=== PATIENT | female | born 1955 | race Caucasian/White ===

== ENCOUNTER 2017-07-03 10:43 | Emergency (ER) | payer MEDICAID, OTHER ==
[~2017-07-03] VITALS: Ht 175.3 cm; Wt 79.4 kg
[2017-07-03] MEDS ORDERED: cefTRIAXone 1GM/50ML D5W 50 ML IV ONE (11:30)
[2017-07-03] MEDS ORDERED: CLINDAMYCIN 600MG IV 50 ML IV ONE (11:30)
[2017-07-03 12:35] LABS: Basophils # (auto) 0 uL; Basophils % (auto) 0.4 % (0.0-2.0); CONDITION Y; Eosinophils # (auto) 0.1 uL; Eosinophils % (auto) 1.3 % (0.0-7.0); Hematocrit 40.8 % (36.0-46.0); Hemoglobin 13.9 g/dL (12.2-16.2); Lymphocytes # (auto) 1.9 uL; Lymphocytes % (auto) 18.2 % (10.0-50.0); Mean Corpuscular Hemoglobin 29.5 pg (28.0-32.0); Mean Corpuscular Hgb Conc. 34.2 g/dL (32.0-36.0); Mean Corpuscular Volume 86.1 fL (80.0-100.0); Mean Platelet Volume 8.6 fL (7.4-10.4); Monocytes # (auto) 0.7 uL; Monocytes % (auto) 6.6 % (0.0-12.0); Neutrophils # (auto) 7.6 uL; Neutrophils % (auto) 73.5 % (37.0-80.0); Platelet Count (auto) 535 10^3/uL (140-450); Red Cell Distribution Width 13.3 % (11.6-16.0); White Blood Cell 10.4 10^3/uL (4.4-10.8)
[2017-07-03 13:00] LABS: Albumin 3.4 g/dL (3.4-5.0); BUN/Creatinine Ratio 11.5; Bilirubin, Total 0.1 mg/dL (0.2-1.0); Calcium 9.1 mg/dL (8.5-10.1); Potassium 4.1 mmol/L (3.5-5.1); Total Protein 8.1 g/dL (6.4-8.2)
[2017-07-03 14:16] VITALS: BP 127/71
== END 2017-07-03 14:55 | disposition home or self-care (01) ==
LOC: ER 10:43
DX: T81.4XXA Infection following a procedure, initial encounter (principal); C50.912 Malignant neoplasm of unspecified site of left female breast; Z90.12 Acquired absence of left breast and nipple; F17.210 Nicotine dependence, cigarettes, uncomplicated
CPT/HCPCS: 36415; 80053; 85025; 87040; 96365; 96366; 96368; 99285; J0696; J3490

== ENCOUNTER 2021-04-04 09:18 | Inpatient (IN) | payer MEDICARE, MEDICAID ==
[~2021-04-04] VITALS: Ht 172.7 cm; Wt 71.0 kg
[2021-04-04] MEDS ORDERED: SODIUM CHLORIDE 0.9% 1,000 ML IV ONE (10:00)
[2021-04-04] MEDS ORDERED: methylPREDNISolone SOD SUCC 125 MG/2 ML VL IV ONE (10:00)
[2021-04-04] MEDS ORDERED: ALBUTEROL SULF 2.5 MG/0.5ML(0.5%) NEB SOLN NEB ONE (10:00)
[2021-04-04] MEDS ORDERED: IPRATROPIUM BROM 0.5 MG/2.5ML INH SOL NEB ONE (10:00)
[2021-04-04] MEDS ORDERED: PROMETHAZINE HCL 25 MG/ML 1ML IV ONE (10:00)
[2021-04-04 10:22] LABS: Basophils # (auto) 0.1 10 ^3/uL (0-0.2); Basophils % (auto) 1.1 % (0.0-2.0); Eosinophils # (auto) 0.1 10 ^3/uL (0-0.8); Eosinophils % (auto) 0.5 % (0.0-7.0); Hematocrit 38.3 % (36.0-46.0); Hemoglobin 12.7 g/dL (12.2-16.2); Lymphocytes # (auto) 1.6 10 ^3/uL (0.4-5.4); Lymphocytes % (auto) 11.8 % (10.0-50.0); Mean Corpuscular Hemoglobin 28.4 pg (28.0-32.0); Mean Corpuscular Hgb Conc. 33.2 g/dL (32.0-36.0); Mean Corpuscular Volume 85.8 fL (80.0-100.0); Monocytes # (auto) 1.1 10 ^3/uL (0-1.3); Monocytes % (auto) 7.9 % (0.0-12.0); Neutrophils # (auto) 10.9 10 ^3/uL (1.6-8.6); Neutrophils % (auto) 78.7 % (37.0-80.0); Nucleated Red Blood Cells % 0.1 %; Red Blood Cells 4.46 10^6/uL (4.0-5.20); Red Cell Distribution Width 13.4 % (11.8-14.3); White Blood Cell 13.9 10^3/uL (4.4-10.8)
[2021-04-04 10:30] LABS: Urine Blood Negative /uL (Negative)
[2021-04-04 10:39] LABS: Chloride 104 mmol/L (98-107); Potassium 4.1 mmol/L (3.5-5.1); Sodium 134 mmol/L (136-145)
[2021-04-04 10:50] LABS: Alanine Aminotransferase 20 U/L (13-56); Albumin 3.4 g/dL (3.4-5.0); Alkaline Phosphatase 89 U/L (45-117); Anion Gap 10 (5-15); Aspartate Aminotransferase 10 U/L (15-37); BUN/Creatinine Ratio 9.5; Bilirubin, Total 0.5 mg/dL (0.2-1.0); Blood Urea Nitrogen 7 mg/dL (7-18); Calcium 8.9 mg/dL (8.5-10.1); Carbon Dioxide 20 mmol/L (21-32); GFR African American 101 mL/min; GFR Non-African American 83 mL/min; Glucose 235 mg/dL (74-106); Magnesium 2.3 mg/dL (1.6-2.6); Total Protein 7.8 g/dL (6.4-8.2)
[2021-04-04] MEDS ORDERED: cefTRIAXone 1GM/50ML D5W 50 ML IV ONE ×2 (12:12→12:15)
[2021-04-04] MEDS ORDERED: MORPHINE SULFATE INJECTION 2 MG/ML SYRG IV PRN (13:00)
[2021-04-04] MEDS ORDERED: NITROGLYCERIN 0.4 MG SL TAB SL PRN (13:00)
[2021-04-04] MEDS ORDERED: LACTULOSE 20Gm/30ML SOLN PO PRN ×2 (14:00)
[2021-04-04] MEDS ORDERED: DEXTROSE (50%) 50ML SYRG IV PRN (14:00)
[2021-04-04] MEDS ORDERED: PROMETHAZINE HCL 25 MG/ML 1ML IV PRN (14:00)
[2021-04-04] MEDS ORDERED: traMADol HCL 50 MG TAB PO PRN (14:00)
[2021-04-04] MEDS: SODIUM CHLOR 0.9% PF (SALINE LOCK) 10ML VIAL/SYR IV SCH ×2 (14:05→21:49)
[2021-04-04] MEDS: ALBUTEROL SULF 2.5 MG/0.5ML(0.5%) NEB SOLN NEB PRN (16:31)
[2021-04-04 17:14] VITALS: BP 111/64
[2021-04-04] MEDS ORDERED: LORA-655 PO (17:29)
[2021-04-04] MEDS ORDERED: GLIP5TAB12 PO (17:29)
[2021-04-04] MEDS: ACCU-CHEK COMFORT CURVE STRIP VI SCH ×2 (18:01→21:49)
[2021-04-04] MEDS: InsuLIN REG 1unit/0.01ml Soln (100units/ml) SC SCH ×2 (18:19→21:51)
[2021-04-04] MEDS: IPRATROPIUM BROM 0.5 MG/2.5ML INH SOL NEB SCH ×2 (18:47→22:32)
[2021-04-04] MEDS: ALBUTEROL SULF 2.5 MG/0.5ML(0.5%) NEB SOLN NEB SCH ×2 (18:47→22:32)
[2021-04-04 20:00] VITALS: BP 134/67
[2021-04-04] MEDS: FAMOTIDINE 20 MG TAB PO SCH (21:49)
[2021-04-04 22:00] VITALS: BP 134/67
[2021-04-04] MEDS: TEMAZEPAM 15 MG CAP PO PRN (22:12)
[2021-04-05] VITALS (7 sets, daily range): BP systolic 98–115; BP diastolic 51–67
[2021-04-05] MEDS: ALBUTEROL SULF 2.5 MG/0.5ML(0.5%) NEB SOLN NEB PRN (03:33)
[2021-04-05] MEDS: SODIUM CHLOR 0.9% PF (SALINE LOCK) 10ML VIAL/SYR IV SCH ×3 (05:11→21:28)
[2021-04-05 05:58] LABS: Basophils # (auto) 0.1 10 ^3/uL (0-0.2); Basophils % (auto) 0.6 % (0.0-2.0); Eosinophils # (auto) 0 10 ^3/uL (0-0.8); Eosinophils % (auto) 0.1 % (0.0-7.0); Hematocrit 30.8 % (36.0-46.0); Hemoglobin 10.4 g/dL (12.2-16.2); Lymphocytes # (auto) 1.4 10 ^3/uL (0.4-5.4); Lymphocytes % (auto) 7.8 % (10.0-50.0); Mean Corpuscular Hemoglobin 28.8 pg (28.0-32.0); Mean Corpuscular Hgb Conc. 33.9 g/dL (32.0-36.0); Mean Corpuscular Volume 85.1 fL (80.0-100.0); Monocytes # (auto) 1.3 10 ^3/uL (0-1.3); Monocytes % (auto) 7.2 % (0.0-12.0); Neutrophils # (auto) 14.6 10 ^3/uL (1.6-8.6); Neutrophils % (auto) 84.3 % (37.0-80.0); Red Blood Cells 3.62 10^6/uL (4.0-5.20); White Blood Cell 17.4 10^3/uL (4.4-10.8)
[2021-04-05 06:12] LABS: Chloride 109 mmol/L (98-107); Potassium 4.2 mmol/L (3.5-5.1); Sodium 139 mmol/L (136-145)
[2021-04-05 06:24] LABS: Alanine Aminotransferase 14 U/L (13-56); Albumin 2.9 g/dL (3.4-5.0); Alkaline Phosphatase 69 U/L (45-117); Anion Gap 6 (5-15); Aspartate Aminotransferase 8 U/L (15-37); BUN/Creatinine Ratio 22.4; Bilirubin, Total 0.3 mg/dL (0.2-1.0); Blood Urea Nitrogen 11 mg/dL (7-18); Calcium 8.6 mg/dL (8.5-10.1); Carbon Dioxide 24 mmol/L (21-32); GFR African American 162 mL/min; GFR Non-African American 134 mL/min; Glucose 174 mg/dL (74-106); Total Protein 6.6 g/dL (6.4-8.2)
[2021-04-05] MEDS: ACCU-CHEK COMFORT CURVE STRIP VI SCH ×4 (06:46→21:29)
[2021-04-05] MEDS: InsuLIN REG 1unit/0.01ml Soln (100units/ml) SC SCH ×4 (06:46→21:29)
[2021-04-05] MEDS: ALBUTEROL SULF 2.5 MG/0.5ML(0.5%) NEB SOLN NEB SCH ×3 (07:02→18:28)
[2021-04-05] MEDS: IPRATROPIUM BROM 0.5 MG/2.5ML INH SOL NEB SCH ×3 (07:02→18:27)
[2021-04-05] MEDS: cefTRIAXone 1GM/50ML D5W 50 ML IV SCH (08:29)
[2021-04-05] MEDS: POTASSIUM CHL 20 Meq TABLET PO SCH (08:31)
[2021-04-05] MEDS: ENOXAPARIN SOD 40 MG/0.4 ML SYRINGE SC SCH (08:31)
[2021-04-05] MEDS: FAMOTIDINE 20 MG TAB PO SCH ×2 (08:31→21:29)
[2021-04-05] MEDS ORDERED: FUROSEMIDE 40 MG/4 ML VIAL IV SCH (10:00)
[2021-04-05] MEDS: AZITHROMYCIN 500MG/ 250ML 250 ML IV SCH (11:49)
[2021-04-05] MEDS: LORazepam 0.5 MG TAB PO PRN (11:50)
[2021-04-05] MEDS: TEMAZEPAM 15 MG CAP PO PRN (21:46)
[2021-04-05 22:32] LABS: INR 0.97 (0.9-1.15)
[2021-04-06] MEDS: ALBUTEROL SULF 2.5 MG/0.5ML(0.5%) NEB SOLN NEB SCH ×4 (00:08→19:01)
[2021-04-06] MEDS: IPRATROPIUM BROM 0.5 MG/2.5ML INH SOL NEB SCH ×4 (00:08→19:01)
[2021-04-06 05:16] VITALS: BP 115/57
[2021-04-06 06:08] LABS: Basophils # (auto) 0.1 10 ^3/uL (0-0.2); Basophils % (auto) 0.7 % (0.0-2.0); Eosinophils # (auto) 0.3 10 ^3/uL (0-0.8); Eosinophils % (auto) 2.1 % (0.0-7.0); Hematocrit 30.3 % (36.0-46.0); Hemoglobin 10.6 g/dL (12.2-16.2); Lymphocytes # (auto) 2.4 10 ^3/uL (0.4-5.4); Lymphocytes % (auto) 17.1 % (10.0-50.0); Mean Corpuscular Hemoglobin 29.7 pg (28.0-32.0); Mean Corpuscular Volume 84.9 fL (80.0-100.0); Monocytes # (auto) 1.2 10 ^3/uL (0-1.3); Monocytes % (auto) 8.3 % (0.0-12.0); Neutrophils # (auto) 10.1 10 ^3/uL (1.6-8.6); Neutrophils % (auto) 71.8 % (37.0-80.0); Red Blood Cells 3.56 10^6/uL (4.0-5.20); Red Cell Distribution Width 13.2 % (11.8-14.3); White Blood Cell 14.1 10^3/uL (4.4-10.8)
[2021-04-06 06:17] LABS: Albumin 2.7 g/dL (3.4-5.0); Calcium 8.4 mg/dL (8.5-10.1); Potassium 4.5 mmol/L (3.5-5.1)
[2021-04-06 06:22] LABS: BUN/Creatinine Ratio 19.6; Bilirubin, Total 0.4 mg/dL (0.2-1.0); Total Protein 6.4 g/dL (6.4-8.2)
[2021-04-06] MEDS: SODIUM CHLOR 0.9% PF (SALINE LOCK) 10ML VIAL/SYR IV SCH ×3 (06:33→21:42)
[2021-04-06] MEDS: InsuLIN REG 1unit/0.01ml Soln (100units/ml) SC SCH ×4 (06:34→21:44)
[2021-04-06] MEDS: ACCU-CHEK COMFORT CURVE STRIP VI SCH ×4 (06:34→21:42)
[2021-04-06 08:00] VITALS: BP 106/67
[2021-04-06 09:00] VITALS: BP 106/67
[2021-04-06] MEDS: cefTRIAXone 1GM/50ML D5W 50 ML IV SCH (09:58)
[2021-04-06] MEDS: AZITHROMYCIN 500MG/ 250ML 250 ML IV SCH (09:58)
[2021-04-06] MEDS: FAMOTIDINE 20 MG TAB PO SCH ×2 (09:59→21:42)
[2021-04-06] MEDS: ENOXAPARIN SOD 40 MG/0.4 ML SYRINGE SC SCH (09:59)
[2021-04-06] MEDS: POTASSIUM CHL 20 Meq TABLET PO SCH (09:59)
[2021-04-06 12:32] VITALS: BP 115/63
[2021-04-06] MEDS ORDERED: ALBUMIN 25% 100 ML IV ONE (13:15)
[2021-04-06] MEDS: LORazepam 0.5 MG TAB PO PRN ×2 (13:29→21:56)
[2021-04-06 17:00] VITALS: BP 119/68
[2021-04-06] MEDS: glipiZIDE 5 MG TAB PO SCH (18:00)
[2021-04-06] MEDS: ACETAMINOPHEN 500 MG TAB PO PRN (21:43)
[2021-04-06 22:00] VITALS: BP 99/61
[2021-04-07] VITALS (7 sets, daily range): BP systolic 99–102; BP diastolic 50–61
[2021-04-07] MEDS: ALBUTEROL SULF 2.5 MG/0.5ML(0.5%) NEB SOLN NEB SCH ×4 (00:17→18:58)
[2021-04-07] MEDS: IPRATROPIUM BROM 0.5 MG/2.5ML INH SOL NEB SCH ×4 (00:17→18:58)
[2021-04-07] MEDS: ACCU-CHEK COMFORT CURVE STRIP VI SCH ×4 (06:21→21:41)
[2021-04-07] MEDS: SODIUM CHLOR 0.9% PF (SALINE LOCK) 10ML VIAL/SYR IV SCH ×3 (06:21→21:41)
[2021-04-07] MEDS: InsuLIN REG 1unit/0.01ml Soln (100units/ml) SC SCH ×4 (06:23→21:49)
[2021-04-07] MEDS: glipiZIDE 5 MG TAB PO SCH ×2 (06:38→18:00)
[2021-04-07] MEDS: AZITHROMYCIN 500MG/ 250ML 250 ML IV SCH (10:07)
[2021-04-07] MEDS: ENOXAPARIN SOD 40 MG/0.4 ML SYRINGE SC SCH (10:07)
[2021-04-07] MEDS: cefTRIAXone 1GM/50ML D5W 50 ML IV SCH (10:07)
[2021-04-07] MEDS: ACETAMINOPHEN 500 MG TAB PO PRN ×2 (10:08→17:48)
[2021-04-07] MEDS: FAMOTIDINE 20 MG TAB PO SCH ×2 (10:08→21:41)
[2021-04-07] MEDS: POTASSIUM CHL 20 Meq TABLET PO SCH (10:08)
[2021-04-07] MEDS: TEMAZEPAM 15 MG CAP PO PRN (21:51)
[2021-04-08] MEDS: IPRATROPIUM BROM 0.5 MG/2.5ML INH SOL NEB SCH ×4 (00:50→20:52)
[2021-04-08] MEDS: ALBUTEROL SULF 2.5 MG/0.5ML(0.5%) NEB SOLN NEB SCH ×4 (00:50→20:52)
[2021-04-08] MEDS: MORPHINE SULFATE INJECTION 2 MG/ML SYRG IV PRN ×2 (01:34→01:37)
[2021-04-08] MEDS: HYDROcodone-ACET 5/325MG TAB PO PRN ×3 (01:38→21:07)
[2021-04-08 05:00] VITALS: BP 91/46
[2021-04-08] MEDS: SODIUM CHLOR 0.9% PF (SALINE LOCK) 10ML VIAL/SYR IV SCH ×3 (05:10→21:07)
[2021-04-08 06:03] LABS: Basophils # (auto) 0.1 10 ^3/uL (0-0.2); Basophils % (auto) 0.8 % (0.0-2.0); Eosinophils # (auto) 0.3 10 ^3/uL (0-0.8); Eosinophils % (auto) 2.8 % (0.0-7.0); Hematocrit 29.9 % (36.0-46.0); Hemoglobin 10.1 g/dL (12.2-16.2); Lymphocytes # (auto) 1.6 10 ^3/uL (0.4-5.4); Mean Corpuscular Hemoglobin 28.7 pg (28.0-32.0); Mean Corpuscular Hgb Conc. 33.8 g/dL (32.0-36.0); Mean Corpuscular Volume 85.1 fL (80.0-100.0); Monocytes % (auto) 8.7 % (0.0-12.0); Neutrophils % (auto) 74.7 % (37.0-80.0); Red Blood Cells 3.51 10^6/uL (4.0-5.20)
[2021-04-08] MEDS: glipiZIDE 5 MG TAB PO SCH ×2 (06:03→18:00)
[2021-04-08] MEDS: ACCU-CHEK COMFORT CURVE STRIP VI SCH ×4 (06:03→21:07)
[2021-04-08] MEDS: InsuLIN REG 1unit/0.01ml Soln (100units/ml) SC SCH ×4 (06:14→21:25)
[2021-04-08 06:33] LABS: Potassium 3.9 mmol/L (3.5-5.1)
[2021-04-08 06:39] LABS: BUN/Creatinine Ratio 15.6; Calcium 8.7 mg/dL (8.5-10.1)
[2021-04-08 09:00] VITALS: BP 102/65
[2021-04-08] MEDS: LORazepam 0.5 MG TAB PO PRN ×2 (09:36→19:20)
[2021-04-08] MEDS: FAMOTIDINE 20 MG TAB PO SCH ×2 (09:36→21:07)
[2021-04-08] MEDS: ACETAMINOPHEN 500 MG TAB PO PRN (09:36)
[2021-04-08] MEDS: cefTRIAXone 1GM/50ML D5W 50 ML IV SCH (09:40)
[2021-04-08] MEDS: AZITHROMYCIN 500MG/ 250ML 250 ML IV SCH (09:41)
[2021-04-08 13:00] VITALS: BP 115/79
[2021-04-08] MEDS ORDERED: ALBUMIN 25% 100 ML IV ONE (13:45)
[2021-04-08] MEDS ORDERED: FUROSEMIDE 20 MG/2 ML VIAL IV ONE (16:30)
[2021-04-08 17:00] VITALS: BP 113/62
[2021-04-08 22:00] VITALS: BP 97/52
[2021-04-09 05:00] VITALS: BP 98/63
[2021-04-09 05:17] LABS: Basophils # (auto) 0.1 10 ^3/uL (0-0.2); Basophils % (auto) 0.6 % (0.0-2.0); Eosinophils # (auto) 0.4 10 ^3/uL (0-0.8); Hematocrit 27.1 % (36.0-46.0); Hemoglobin 9.4 g/dL (12.2-16.2); Lymphocytes % (auto) 8.6 % (10.0-50.0); Mean Corpuscular Hemoglobin 29.2 pg (28.0-32.0); Mean Corpuscular Hgb Conc. 34.8 g/dL (32.0-36.0); Mean Corpuscular Volume 83.9 fL (80.0-100.0); Monocytes # (auto) 1.1 10 ^3/uL (0-1.3); Monocytes % (auto) 9.4 % (0.0-12.0); Neutrophils # (auto) 9.3 10 ^3/uL (1.6-8.6); Neutrophils % (auto) 78.4 % (37.0-80.0); Red Blood Cells 3.23 10^6/uL (4.0-5.20); Red Cell Distribution Width 12.8 % (11.8-14.3); White Blood Cell 11.9 10^3/uL (4.4-10.8)
[2021-04-09] MEDS: SODIUM CHLOR 0.9% PF (SALINE LOCK) 10ML VIAL/SYR IV SCH ×2 (05:50→13:48)
[2021-04-09] MEDS: InsuLIN REG 1unit/0.01ml Soln (100units/ml) SC SCH ×3 (05:53→17:55)
[2021-04-09] MEDS: glipiZIDE 5 MG TAB PO SCH ×2 (06:45→17:56)
[2021-04-09] MEDS: ACCU-CHEK COMFORT CURVE STRIP VI SCH ×3 (06:46→17:54)
[2021-04-09] MEDS: ALBUTEROL SULF 2.5 MG/0.5ML(0.5%) NEB SOLN NEB SCH ×4 (06:58→18:16)
[2021-04-09] MEDS: IPRATROPIUM BROM 0.5 MG/2.5ML INH SOL NEB SCH ×4 (06:58→18:16)
[2021-04-09 09:00] VITALS: BP 115/65
[2021-04-09] MEDS: cefTRIAXone 1GM/50ML D5W 50 ML IV SCH (09:54)
[2021-04-09] MEDS: LORazepam 0.5 MG TAB PO PRN (09:54)
[2021-04-09] MEDS: FAMOTIDINE 20 MG TAB PO SCH (09:54)
[2021-04-09] MEDS: AZITHROMYCIN 500MG/ 250ML 250 ML IV SCH (10:31)
[2021-04-09 13:00] VITALS: BP 109/52
[2021-04-09] MEDS ORDERED: LEVO750T64 PO (15:57)
[2021-04-09 17:00] VITALS: BP 117/51
== END 2021-04-09 21:05 | disposition home health service (06) | DRG 180 ==
LOC: ER 09:18 → TELE 12:55 → TELE-WESTW 18:09
PROVIDERS: ADMIT Internal Medicine; ATTEND Internal Medicine
PROC: 0W993ZZ Drainage of Right Pleural Cavity, Percutaneous Approach (ICD-10-PCS; 2021-04-04)
PROC: 0W993ZZ Drainage of Right Pleural Cavity, Percutaneous Approach (ICD-10-PCS; principal; 2021-04-06)
PROC: 0W9930Z Drainage of Right Pleural Cavity with Drainage Device, Percutaneous Approach (ICD-10-PCS; 2021-04-08)
DX: C78.2 Secondary malignant neoplasm of pleura (principal); J96.01 Acute respiratory failure with hypoxia; J18.9 Pneumonia, unspecified organism; J44.1 Chronic obstructive pulmonary disease with (acute) exacerbation; N39.0 Urinary tract infection, site not specified; J98.11 Atelectasis; J91.0 Malignant pleural effusion; E11.65 Type 2 diabetes mellitus with hyperglycemia; Z20.822 Contact with and (suspected) exposure to COVID-19; F17.210 Nicotine dependence, cigarettes, uncomplicated; F41.9 Anxiety disorder, unspecified; I11.9 Hypertensive heart disease without heart failure; I70.0 Atherosclerosis of aorta; Z80.0 Family history of malignant neoplasm of digestive organs; Z80.3 Family history of malignant neoplasm of breast; Z82.49 Family history of ischemic heart disease and other diseases of the circulatory system; Z85.3 Personal history of malignant neoplasm of breast; Z90.11 Acquired absence of right breast and nipple; Z90.12 Acquired absence of left breast and nipple; Z92.21 Personal history of antineoplastic chemotherapy
CPT/HCPCS: 32555; 36415; 36600; 71045; 71250; 76604; 76942; 80048; 80053; 81003; 82550; 82805; 82962; 83036; 83615; 83735; 83880; 83986; 84443; 84484; 85025; 85610; 85730; 87070; 87205; 87426; 89051; 93005; 93306; 94640; 94644; 96361; 96375; G0378; J0696; J1815; P9047

== ENCOUNTER 2021-04-23 09:55 | Inpatient (IN) | payer MEDICARE, MEDICAID ==
[2021-04-23] VITALS (7 sets, daily range): BP systolic 105–127; BP diastolic 42–65
[~2021-04-23] VITALS: Ht 167.6 cm; Wt 74.0 kg
[~2021-04-23 09:55] MED LIST: GLIP5TAB12 PO; LEVO750T64 PO
[2021-04-23 10:43] LABS: Eosinophils # (auto) 0.1 10 ^3/uL (0-0.8); Eosinophils % (auto) 0.8 % (0.0-7.0); Hematocrit 19.9 % (36.0-46.0); Lymphocytes # (auto) 0.9 10 ^3/uL (0.4-5.4); White Blood Cell 12.1 10^3/uL (4.4-10.8)
[2021-04-23 10:45] LABS: Basophils # (auto) 0 10 ^3/uL (0-0.2); Basophils % (auto) 0.3 % (0.0-2.0); Lymphocytes % (auto) 7.4 % (10.0-50.0); Mean Corpuscular Hemoglobin 26.8 pg (28.0-32.0); Mean Corpuscular Hgb Conc. 32.5 g/dL (32.0-36.0); Mean Corpuscular Volume 82.4 fL (80.0-100.0); Monocytes # (auto) 0.7 10 ^3/uL (0-1.3); Monocytes % (auto) 5.5 % (0.0-12.0); Neutrophils # (auto) 10.4 10 ^3/uL (1.6-8.6); Red Blood Cells 2.41 10^6/uL (4.0-5.20); Red Cell Distribution Width 14.5 % (11.8-14.3)
[2021-04-23 10:48] LABS: Hemoglobin 6.5 g/dL (12.2-16.2)
[2021-04-23 10:53] LABS: Alanine Aminotransferase 20 U/L (13-56); Albumin 2.8 g/dL (3.4-5.0); Anion Gap 6 (5-15); Blood Urea Nitrogen 6 mg/dL (7-18); Calcium 8.4 mg/dL (8.5-10.1); Carbon Dioxide 26 mmol/L (21-32); Chloride 99 mmol/L (98-107); Glucose 221 mg/dL (74-106); Sodium 131 mmol/L (136-145)
[2021-04-23 10:58] LABS: Alkaline Phosphatase 97 U/L (45-117); Aspartate Aminotransferase 20 U/L (15-37); BUN/Creatinine Ratio 10.9; Bilirubin, Total 0.4 mg/dL (0.2-1.0); GFR African American 142 mL/min; GFR Non-African American 117 mL/min
[2021-04-23] MEDS ORDERED: cefTRIAXone 1GM/50ML D5W 50 ML IV ONE (11:00)
[2021-04-23 11:30] LABS: Urine Bacteria FEW /hpf (None Seen); Urine Blood Negative /uL (Negative); Urine Specific Gravity 1.013 (1.001-1.035); Urine WBC 3 /hpf (0 - 5)
[2021-04-23] MEDS ORDERED: PROMETHAZINE HCL 25 MG/ML 1ML IV PRN (12:00)
[2021-04-23] MEDS ORDERED: DEXTROSE (50%) 50ML SYRG IV PRN (12:00)
[2021-04-23] MEDS ORDERED: MORPHINE SULF INJ 2 MG/ML SYRINGE 1ML IV PRN ×2 (12:00)
[2021-04-23] MEDS ORDERED: NITROGLYCERIN 0.4 MG SL TAB SL PRN (12:00)
[2021-04-23] MEDS ORDERED: LACTULOSE 20Gm/30ML SOLN PO PRN (12:00)
[2021-04-23] MEDS ORDERED: ACETAMINOPHEN 500 MG TAB PO PRN (12:00)
[2021-04-23] MEDS: ALBUTEROL SULF 2.5 MG/0.5ML(0.5%) NEB SOLN NEB SCH ×2 (12:28→18:39)
[2021-04-23] MEDS: IPRATROPIUM BROM 0.5 MG/2.5ML INH SOL NEB SCH ×2 (12:29→18:39)
[2021-04-23 12:46] LABS: Hematocrit 19.4 % (36.0-46.0)
[2021-04-23 13:00] LABS: INR 1.08 (0.9-1.15)
[2021-04-23 13:01] LABS: Hemoglobin 6.4 g/dL (12.2-16.2)
[2021-04-23] MEDS ORDERED: ONDANSETRON HCL 4 MG/2 ML VIAL ONE (14:19)
[2021-04-23] MEDS ORDERED: ONDANSETRON HCL 4 MG/2 ML VIAL IV PRN (14:30)
[2021-04-23] MEDS ORDERED: ALBU108A5 PO (16:23)
[2021-04-23] MEDS ORDERED: ACET300T57 PO (16:23)
[2021-04-23] MEDS ORDERED: LORA0.5T20 PO (16:23)
[2021-04-23] MEDS: InsuLIN REG 1unit/0.01ml Soln (100units/ml) SC SCH ×2 (17:00→21:55)
[2021-04-23] MEDS: ACCU-CHEK COMFORT CURVE STRIP VI SCH ×2 (17:07→21:51)
[2021-04-23] MEDS ORDERED: LORazepam 2MG/ML-1ML VIAL IV ONE (18:15)
[2021-04-23] MEDS: methylPREDNISolone SOD SUCC 40 MG/ML VL IV SCH (21:51)
[2021-04-23] MEDS: TEMAZEPAM 15 MG CAP PO PRN (21:55)
[2021-04-23 22:23] LABS: Hematocrit 24.4 % (36.0-46.0); Hemoglobin 8.2 g/dL (12.2-16.2)
[2021-04-24 00:43] LABS: Hematocrit 23.5 % (36.0-46.0)
[2021-04-24 05:00] VITALS: BP 126/69
[2021-04-24 05:26] LABS: Eosinophils # (auto) 0 10 ^3/uL (0-0.8); Lymphocytes # (auto) 0.5 10 ^3/uL (0.4-5.4); Lymphocytes % (auto) 4.6 % (10.0-50.0); Monocytes # (auto) 0.2 10 ^3/uL (0-1.3); White Blood Cell 10.9 10^3/uL (4.4-10.8)
[2021-04-24 05:30] LABS: Basophils # (auto) 0 10 ^3/uL (0-0.2); Basophils % (auto) 0.4 % (0.0-2.0); Mean Corpuscular Hemoglobin 28.7 pg (28.0-32.0); Mean Corpuscular Hgb Conc. 34.8 g/dL (32.0-36.0); Mean Corpuscular Volume 82.3 fL (80.0-100.0); Monocytes % (auto) 1.6 % (0.0-12.0); Neutrophils # (auto) 10.2 10 ^3/uL (1.6-8.6); Neutrophils % (auto) 93.4 % (37.0-80.0); Nucleated Red Blood Cells % 0.1 %; Red Cell Distribution Width 14.9 % (11.8-14.3)
[2021-04-24 05:54] LABS: Potassium 4.4 mmol/L (3.5-5.1)
[2021-04-24 06:02] LABS: Albumin 2.5 g/dL (3.4-5.0); BUN/Creatinine Ratio 14.9; Bilirubin, Total 0.7 mg/dL (0.2-1.0); Calcium 8.4 mg/dL (8.5-10.1); Total Protein 6.4 g/dL (6.4-8.2)
[2021-04-24] MEDS: methylPREDNISolone SOD SUCC 40 MG/ML VL IV SCH ×3 (06:04→23:12)
[2021-04-24] MEDS: ACCU-CHEK COMFORT CURVE STRIP VI SCH ×4 (06:04→23:18)
[2021-04-24] MEDS: InsuLIN REG 1unit/0.01ml Soln (100units/ml) SC SCH ×4 (06:14→23:15)
[2021-04-24] MEDS: ALBUTEROL SULF 2.5 MG/0.5ML(0.5%) NEB SOLN NEB SCH ×5 (07:55→23:31)
[2021-04-24] MEDS: IPRATROPIUM BROM 0.5 MG/2.5ML INH SOL NEB SCH ×5 (07:55→23:31)
[2021-04-24 09:00] VITALS: BP 134/76
[2021-04-24] MEDS: levoFLOXacin 500MG 100 ML IV SCH (10:10)
[2021-04-24] MEDS: PANTOPRAZOLE 40 MG TAB PO SCH (10:10)
[2021-04-24 13:00] VITALS: BP 128/65
[2021-04-24] MEDS: LORazepam 2MG/ML-1ML VIAL IV PRN ×2 (13:19→18:53)
[2021-04-24] MEDS ORDERED: DEXTROSE (50%) 50ML SYRG IV PRN (14:45)
[2021-04-24 17:00] VITALS: BP 117/63
[2021-04-24] MEDS: TEMAZEPAM 15 MG CAP PO PRN (23:13)
[2021-04-24 23:41] VITALS: BP 117/59
[2021-04-25] MEDS: LORazepam 2MG/ML-1ML VIAL IV PRN ×4 (00:48→19:18)
[2021-04-25 05:06] VITALS: BP 122/69
[2021-04-25 06:00] LABS: Eosinophils # (auto) 0 10 ^3/uL (0-0.8); Hemoglobin 7.7 g/dL (12.2-16.2); Lymphocytes # (auto) 0.3 10 ^3/uL (0.4-5.4); Monocytes # (auto) 0.4 10 ^3/uL (0-1.3); Neutrophils # (auto) 15.6 10 ^3/uL (1.6-8.6); Neutrophils % (auto) 95.3 % (37.0-80.0); Red Cell Distribution Width 15.4 % (11.8-14.3); White Blood Cell 16.4 10^3/uL (4.4-10.8)
[2021-04-25] MEDS: ACCU-CHEK COMFORT CURVE STRIP VI SCH ×3 (06:00→18:24)
[2021-04-25 06:02] LABS: Basophils # (auto) 0.1 10 ^3/uL (0-0.2); Basophils % (auto) 0.4 % (0.0-2.0); Hematocrit 22.6 % (36.0-46.0); Lymphocytes % (auto) 2.1 % (10.0-50.0); Mean Corpuscular Hemoglobin 28.3 pg (28.0-32.0); Mean Corpuscular Hgb Conc. 34.2 g/dL (32.0-36.0); Mean Corpuscular Volume 82.7 fL (80.0-100.0); Monocytes % (auto) 2.2 % (0.0-12.0); Red Blood Cells 2.73 10^6/uL (4.0-5.20)
[2021-04-25] MEDS: IPRATROPIUM BROM 0.5 MG/2.5ML INH SOL NEB SCH ×4 (06:05→23:58)
[2021-04-25] MEDS: ALBUTEROL SULF 2.5 MG/0.5ML(0.5%) NEB SOLN NEB SCH ×4 (06:05→23:58)
[2021-04-25] MEDS: methylPREDNISolone SOD SUCC 40 MG/ML VL IV SCH ×3 (06:28→21:59)
[2021-04-25] MEDS: InsuLIN REG 1unit/0.01ml Soln (100units/ml) SC SCH ×3 (06:32→18:25)
[2021-04-25 08:50] VITALS: BP 134/67
[2021-04-25] MEDS: PANTOPRAZOLE 40 MG TAB PO SCH (09:21)
[2021-04-25] MEDS: levoFLOXacin 500MG 100 ML IV SCH (09:21)
[2021-04-25] MEDS: HYDROcodone-ACET 5/325MG TAB PO PRN (09:22)
[2021-04-25 13:00] VITALS: BP 121/62
[2021-04-25 17:00] VITALS: BP 125/66
[2021-04-25] MEDS: Glucerna Carbsteady SHAKE Vanilla 8oz PO SCH (18:23)
[2021-04-25 18:51] LABS: Hematocrit 25.1 % (36.0-46.0); Hemoglobin 8.1 g/dL (12.2-16.2)
[2021-04-25] MEDS: TEMAZEPAM 15 MG CAP PO PRN (21:59)
[2021-04-25 22:00] VITALS: BP 123/60
[2021-04-26] VITALS (7 sets, daily range): BP systolic 103–140; BP diastolic 60–80
[2021-04-26] MEDS: InsuLIN REG 1unit/0.01ml Soln (100units/ml) SC SCH ×4 (00:53→17:54)
[2021-04-26] MEDS: ACCU-CHEK COMFORT CURVE STRIP VI SCH ×4 (00:59→17:54)
[2021-04-26 05:17] LABS: Basophils # (auto) 0.1 10 ^3/uL (0-0.2); Basophils % (auto) 0.5 % (0.0-2.0); Eosinophils # (auto) 0 10 ^3/uL (0-0.8); Lymphocytes # (auto) 0.4 10 ^3/uL (0.4-5.4); Lymphocytes % (auto) 2.2 % (10.0-50.0); Monocytes # (auto) 0.6 10 ^3/uL (0-1.3)
[2021-04-26 05:20] LABS: Hematocrit 25.3 % (36.0-46.0); Hemoglobin 8.5 g/dL (12.2-16.2); Mean Corpuscular Hemoglobin 27.8 pg (28.0-32.0); Mean Corpuscular Hgb Conc. 33.5 g/dL (32.0-36.0); Monocytes % (auto) 3.3 % (0.0-12.0); Red Blood Cells 3.05 10^6/uL (4.0-5.20); Red Cell Distribution Width 16.3 % (11.8-14.3)
[2021-04-26 05:35] LABS: Albumin 2.8 g/dL (3.4-5.0); Calcium 8.8 mg/dL (8.5-10.1); Potassium 4.2 mmol/L (3.5-5.1)
[2021-04-26 05:40] LABS: Bilirubin, Total 0.4 mg/dL (0.2-1.0); Total Protein 6.7 g/dL (6.4-8.2)
[2021-04-26] MEDS: methylPREDNISolone SOD SUCC 40 MG/ML VL IV SCH ×3 (06:09→22:06)
[2021-04-26] MEDS: IPRATROPIUM BROM 0.5 MG/2.5ML INH SOL NEB SCH ×3 (07:22→18:43)
[2021-04-26] MEDS: ALBUTEROL SULF 2.5 MG/0.5ML(0.5%) NEB SOLN NEB SCH ×3 (07:22→18:43)
[2021-04-26] MEDS: Glucerna Carbsteady SHAKE Vanilla 8oz PO SCH ×3 (08:00→17:53)
[2021-04-26] MEDS: PANTOPRAZOLE 40 MG TAB PO SCH (09:48)
[2021-04-26] MEDS: levoFLOXacin 500MG 100 ML IV SCH (09:48)
[2021-04-26] MEDS: LORazepam 2MG/ML-1ML VIAL IV PRN (09:59)
[2021-04-26] MEDS ORDERED: LORazepam 2MG/ML-1ML VIAL IV ONE (14:00)
[2021-04-27] MEDS: IPRATROPIUM BROM 0.5 MG/2.5ML INH SOL NEB SCH ×5 (00:17→22:59)
[2021-04-27] MEDS: ALBUTEROL SULF 2.5 MG/0.5ML(0.5%) NEB SOLN NEB SCH ×5 (00:17→22:59)
[2021-04-27] MEDS: ACCU-CHEK COMFORT CURVE STRIP VI SCH ×5 (00:39→22:47)
[2021-04-27] MEDS: InsuLIN REG 1unit/0.01ml Soln (100units/ml) SC SCH ×5 (00:40→22:50)
[2021-04-27] MEDS: TEMAZEPAM 15 MG CAP PO PRN ×2 (00:53→23:29)
[2021-04-27] MEDS: ALBUTEROL SULF 2.5 MG/0.5ML(0.5%) NEB SOLN NEB PRN (03:01)
[2021-04-27] MEDS: HYDROcodone-ACET 5/325MG TAB PO PRN ×2 (03:15→15:58)
[2021-04-27 05:00] VITALS: BP 129/72
[2021-04-27] MEDS: methylPREDNISolone SOD SUCC 40 MG/ML VL IV SCH ×2 (06:07→13:40)
[2021-04-27] MEDS: LORazepam 2MG/ML-1ML VIAL IV PRN ×3 (06:35→18:24)
[2021-04-27 07:04] LABS: Basophils # (auto) 0 10 ^3/uL (0-0.2); Basophils % (auto) 0.2 % (0.0-2.0); Eosinophils # (auto) 0 10 ^3/uL (0-0.8); Hematocrit 25.9 % (36.0-46.0); Hemoglobin 8.6 g/dL (12.2-16.2); Lymphocytes # (auto) 0.6 10 ^3/uL (0.4-5.4); Lymphocytes % (auto) 4.6 % (10.0-50.0); Mean Corpuscular Hemoglobin 27.6 pg (28.0-32.0); Mean Corpuscular Volume 83.5 fL (80.0-100.0); Monocytes # (auto) 0.7 10 ^3/uL (0-1.3); Neutrophils # (auto) 11.7 10 ^3/uL (1.6-8.6); Neutrophils % (auto) 90.2 % (37.0-80.0); Nucleated Red Blood Cells % 0.1 %; Red Cell Distribution Width 16.2 % (11.8-14.3)
[2021-04-27 07:13] LABS: Calcium 8.7 mg/dL (8.5-10.1); Potassium 3.9 mmol/L (3.5-5.1)
[2021-04-27 07:20] LABS: Albumin 2.7 g/dL (3.4-5.0); BUN/Creatinine Ratio 18.3; Bilirubin, Total 0.4 mg/dL (0.2-1.0); Total Protein 6.5 g/dL (6.4-8.2)
[2021-04-27] MEDS: Glucerna Carbsteady SHAKE Vanilla 8oz PO SCH ×3 (08:20→18:24)
[2021-04-27 09:00] VITALS: BP 116/64
[2021-04-27] MEDS: levoFLOXacin 500MG 100 ML IV SCH (09:27)
[2021-04-27] MEDS: PANTOPRAZOLE 40 MG TAB PO SCH (09:27)
[2021-04-27 13:00] VITALS: BP 128/66
[2021-04-27 17:00] VITALS: BP 147/70
[2021-04-27 17:07] VITALS: BP 178/70
[2021-04-27 22:00] VITALS: BP 143/91
[2021-04-27] MEDS ORDERED: CALCIUM CARB 500 MG CHEW TAB PO PRN (23:15)
[2021-04-28] MEDS: IPRATROPIUM BROM 0.5 MG/2.5ML INH SOL NEB SCH ×2 (04:44→13:15)
[2021-04-28] MEDS: ALBUTEROL SULF 2.5 MG/0.5ML(0.5%) NEB SOLN NEB SCH ×2 (04:44→13:15)
[2021-04-28 05:00] VITALS: BP 136/79
[2021-04-28] MEDS: ACCU-CHEK COMFORT CURVE STRIP VI SCH ×2 (05:35→12:10)
[2021-04-28] MEDS: InsuLIN REG 1unit/0.01ml Soln (100units/ml) SC SCH ×2 (05:47→12:10)
[2021-04-28] MEDS: LORazepam 2MG/ML-1ML VIAL IV PRN (05:48)
[2021-04-28 09:00] VITALS: BP 135/74
[2021-04-28] MEDS: ALBUTEROL SULF 2.5 MG/0.5ML(0.5%) NEB SOLN NEB PRN (09:34)
[2021-04-28] MEDS ORDERED: methylPREDNISolone SOD SUCC 40 MG/ML VL IV SCH (10:00)
[2021-04-28] MEDS: PANTOPRAZOLE 40 MG TAB PO SCH (10:26)
[2021-04-28] MEDS: levoFLOXacin 500MG 100 ML IV SCH (10:26)
[2021-04-28] MEDS: Glucerna Carbsteady SHAKE Vanilla 8oz PO SCH ×2 (10:26→12:09)
[2021-04-28] MEDS: HYDROcodone-ACET 5/325MG TAB PO PRN (10:26)
[2021-04-28 13:00] VITALS: BP 126/67
== END 2021-04-28 15:29 | disposition hospice, home (50) | DRG 186 ==
LOC: ER 09:55 → EDBD 09:55 → TELE 11:57 → TELE-CENTR 20:08
PROVIDERS: ADMIT Internal Medicine; ATTEND Internal Medicine
PROC: 30230N1 Transfusion of Nonautologous Red Blood Cells into Peripheral Vein, Open Approach (ICD-10-PCS; principal; 2021-04-23)
PROC: 0W993ZZ Drainage of Right Pleural Cavity, Percutaneous Approach (ICD-10-PCS; 2021-04-24)
PROC: 0WP930Z Removal of Drainage Device from Right Pleural Cavity, Percutaneous Approach (ICD-10-PCS; 2021-04-24)
DX: J94.2 Hemothorax (principal); J96.21 Acute and chronic respiratory failure with hypoxia; J18.9 Pneumonia, unspecified organism; J44.1 Chronic obstructive pulmonary disease with (acute) exacerbation; J98.11 Atelectasis; J44.0 Chronic obstructive pulmonary disease with (acute) lower respiratory infection; C78.00 Secondary malignant neoplasm of unspecified lung; C79.81 Secondary malignant neoplasm of breast; R65.10 Systemic inflammatory response syndrome (SIRS) of non-infectious origin without acute organ dysfunction; C78.2 Secondary malignant neoplasm of pleura; J91.0 Malignant pleural effusion; R79.89 Other specified abnormal findings of blood chemistry; D47.3 Essential (hemorrhagic) thrombocythemia; E11.9 Type 2 diabetes mellitus without complications; C50.912 Malignant neoplasm of unspecified site of left female breast; D63.8 Anemia in other chronic diseases classified elsewhere; F17.210 Nicotine dependence, cigarettes, uncomplicated; F41.9 Anxiety disorder, unspecified; Z79.84 Long term (current) use of oral hypoglycemic drugs; Z80.3 Family history of malignant neoplasm of breast; Z85.3 Personal history of malignant neoplasm of breast; Z90.12 Acquired absence of left breast and nipple; Z79.899 Other long term (current) drug therapy; Z79.891 Long term (current) use of opiate analgesic; Z79.01 Long term (current) use of anticoagulants
CPT/HCPCS: 36415; 36430; 71045; 71250; 76604; 80053; 81001; 82270; 82962; 83605; 84484; 85014; 85018; 85025; 85045; 85049; 85610; 86850; 86900; 86901; 86920; 87040; 87086; 87426; 93005; 94640; 96374; G0378; J0696; J1815; J1956; J2405